=== PATIENT | male | born 1955 | race Caucasian/White ===

== ENCOUNTER 2022-05-23 08:58 | Inpatient (IN) ==
[2022-05-15 16:51] LABS: Appearance,Urine CLEAR (Clear); Bilirubin,Urine NEGATIVE (Negative); Color,Urine LT. YELLOW; Culture Indicated,Urine No; Glucose,Urine (UA) NEGATIVE (Negative); Ketones,Urine NEGATIVE (Negative); Leukocyte Esterase,Urine NEGATIVE /uL (Negative); Nitrate,Urine NEGATIVE (Negative); Protein,Urine NEGATIVE (Negative); Urine Blood NEGATIVE ery/mcL (Negative); Urobilinogen,Urine Normal
[2022-05-15 16:53] LABS: Basophils # (Auto) 0.06 K/mcL (0.00-0.30); Basophils % (Auto) 0.8 % (0.0-2.0); Eosinophils # (Auto) 0.13 K/mcL (0.00-0.70); Eosinophils % (Auto) 1.8 % (0.0-7.0); Hematocrit 46.8 % (40.1-51.0); Hemoglobin 15.6 g/dL (13.7-17.5); Lymphocytes # (Auto) 1.71 K/mcL (1.50-4.80); Lymphocytes % (Auto) 24.2 % (15.5-49.0); Mean Cell Volume 93.8 fL (80.0-100.0); Mean Corpuscular HGB Conc 33.3 g/dL (31.0-36.0); Mean Platelet Volume 10.1 fL (8.8-12.5); Monocytes # (Auto) 0.85 K/mcL (0.10-0.90); Neutrophils % (Auto) 60.8 % (38.0-78.0); Platelet Count 229 K/mcL (140-440); RBC 4.99 M/mcL (4.63-6.08); Red Cell Distribution Width 12.8 % (11.5-14.5); WBC 7.1 K/mcL (4.5-11.0)
[2022-05-15 17:10] LABS: INR 0.9 (0.9-1.1); Prothrombin Time 12.9 sec (11.9-14.5)
[2022-05-15 17:20] LABS: Estimated Average Glucose(eAG) 120 mg/dL; Hemoglobin A1C 5.8 % Hgb (4.0-6.0)
[2022-05-15 17:29] LABS: ALT/SGPT 41 U/L (<40); AST/SGOT 32 U/L (<40); Albumin 4.4 gm/dL (3.2-5.2); Albumin/Globulin Ratio 1.4 (1.0-2.3); Alkaline Phosphatase 90 U/L (39-117); Bilirubin,Total 0.3 mg/dL (0.1-1.0); Blood Urea Nitrogen 23 mg/dL (8-23); Calcium 9.9 mg/dL (8.6-10.4); Carbon Dioxide 25 mmol/L (22-30); Chloride 102 mmol/L (96-108); Globulin 3.1 gm/dL (2.2-3.7); Glomerular Filtration Rate 56; Glucose 140 mg/dL (70-105)
--- NOTE | 2022-05-18 11:30 | EKG ---
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
[~2022-05-23 08:58] MED LIST: 0.9 % SODIUM CHLORIDE 9 ML, KETOROLAC 30 MG, ROPIVACAINE HCL/PF 49.5 ML, EPINEPHrine 0.... IJ SCH; CELECOXIB 200 MG CAPSULE PO SCH; PREGABALIN 75 MG CAPSULE PO SCH; ceFAZolin 2 GM in DEXTROSE 5% IN WATER 50 ML IV SCH; oxyCODONE 10 MG TAB.ER.12H PO SCH
[2022-05-23] MEDS ORDERED: DEXAMETHASONE 10 MG/ML VIAL ONE (11:37)
[2022-05-23] MEDS ORDERED: TRANEXAMIC ACID 1,000 MG/10 ML VIAL ONE (11:37)
[2022-05-23] MEDS ORDERED: ONDANSETRON 4 MG/2 ML VIAL ONE (11:37)
[2022-05-23] MEDS ORDERED: PROPOFOL 200 MG/20 ML VIAL IV ONE (11:37)
[2022-05-23] MEDS ORDERED: LIDOCAINE HCL/PF 100 MG/5 ML SYRINGE IV ONE (11:37)
[2022-05-23] MEDS ORDERED: ROPIVACAINE HCL/PF 20 ML VIAL IJ ONE (11:37)
[2022-05-23] MEDS ORDERED: fentaNYL 100 MCG/2 ML VIAL IV ONE (11:37)
[2022-05-23] MEDS ORDERED: ROCURONIUM 10 MG/ML ML IV ONE (11:37)
[2022-05-23] MEDS ORDERED: HYDROmorphone 1 MG/ML SYRINGE ONE (11:37)
[2022-05-23] MEDS ORDERED: ONDANSETRON 4 MG/2 ML VIAL IV PRN ×2 (12:12→12:44)
[2022-05-23] MEDS ORDERED: NALOXONE HCL 0.4 MG/ML VIAL IV PRN (12:12)
[2022-05-23] MEDS ORDERED: ACETAMINOPHEN 1,000 MG/100 ML BAG IV ONE (12:12)
[2022-05-23] MEDS ORDERED: METHOCARBAMOL 1,000 MG/10 ML VIAL IV PRN (12:12)
[2022-05-23] MEDS ORDERED: IPRATROPIUM/ALBUTEROL 3 ML AMPUL.NEB NEB PRN (12:12)
[2022-05-23] MEDS ORDERED: HYDROmorphone 0.5 MG/0.5 ML SYRINGE IV PRN (12:12)
[2022-05-23] MEDS ORDERED: LACTATED RINGERS 1,000 ML IV SCH (12:15)
--- NOTE | 2022-05-23 12:42 | Brief Operative Note ---
Brief Operative Note Date of procedure: 05/23/22 Pre-op diagnosis: Left knee instability s/p prior TKA Post-op diagnosis: same Procedure: Left total knee arthroplasty revision, 1 component Grafts/Implants: Yes (12 CS insert placed) Anesthesia: GLMA Findings: no evidence of infection or implant loosening. Complications: none Surgeon: Bruce Avila Rn Informatics: Gurjit Colon Estimated blood loss (cc): 20 Specimens Removed/Pathology: other (removed 10mm CR insert w wire) Condition: stable Disposition: PACU
[2022-05-23] MEDS ORDERED: MAGNESIUM HYDROXIDE 30 ML ORAL.SUSP PO PRN (12:44)
[2022-05-23] MEDS ORDERED: TRANEXAMIC ACID 1,000 MG/10 ML VIAL IV ONE (12:44)
[2022-05-23] MEDS ORDERED: POLYETHYLENE GLYCOL 3350 17 GM PACKET PO PRN (12:44)
[2022-05-23] MEDS ORDERED: FLEETS ADULT ENEMA PR PRN (12:44)
[2022-05-23] MEDS ORDERED: BISACODYL 10 MG SUPP.RECT PR PRN (12:44)
[2022-05-23] MEDS ORDERED: morphine 4 MG/ML VIAL IV PRN (12:49)
[2022-05-23] MEDS ORDERED: NITROGLYCERIN 0.4 MG TAB.SUBL SL PRN (12:54)
[2022-05-23] MEDS ORDERED: COLCHICINE 0.6 MG CAPSULE PO SCH (13:00)
[2022-05-23] MEDS: fentaNYL 100 MCG/2 ML VIAL IV PRN ×4 (13:24→13:36)
--- NOTE | 2022-05-23 14:31 | XRay Report ---
INDICATION: Post-op total knee TECHNIQUE: AP, crosstable lateral, patellar views COMPARISON: Previous examination dated 08/04/2019 FINDINGS: Status post revision of left total knee arthroplasty. Normal anatomic alignment. There is postsurgical and intra-articular gas. There are skin wilman anteriorly IMPRESSION: Revision of left total knee arthroplasty Interpreted and Authenticated by: Raymon Collins 05/23/22
[2022-05-23] MEDS: 0.9 % SODIUM CHLORIDE 10 ML SYRINGE IV SCH ×2 (15:14→19:45)
[2022-05-23] MEDS: KETOROLAC 30 MG/ML VIAL IV SCH (17:12)
[2022-05-23] MEDS: 0.9 % SODIUM CHLORIDE 1,000 ML IV SCH (17:12)
[2022-05-23] MEDS ORDERED: ceFAZolin 1 GM VIAL ONE (19:30)
[2022-05-23] MEDS: ceFAZolin 1 GM VIAL IV SCH (19:35)
[2022-05-23] MEDS: ASPIRIN 81 MG TAB.CHEW PO SCH (19:42)
[2022-05-23] MEDS: HYDROcodone/APAP 10/325MG TABLET PO PRN (19:42)
[2022-05-23] MEDS: DOCUSATE SODIUM 100 MG CAPSULE PO SCH (19:45)
[2022-05-23] MEDS ORDERED: ATORVASTATIN 40 MG TABLET PO SCH (21:00)
[2022-05-23] MEDS ORDERED: SENNOSIDES 1 TABLET PO SCH (21:00)
[2022-05-24] MEDS: KETOROLAC 30 MG/ML VIAL IV SCH ×2 (00:47→06:05)
[2022-05-24] MEDS: 0.9 % SODIUM CHLORIDE 1,000 ML IV SCH (03:32)
[2022-05-24] MEDS: ceFAZolin 1 GM VIAL IV SCH (03:43)
[2022-05-24] MEDS: 0.9 % SODIUM CHLORIDE 10 ML SYRINGE IV SCH (06:05)
--- NOTE | 2022-05-24 07:07 | Discharge Summary ---
Discharge Provider Provider IMPORTANT FOLLOW-UP INFORMATION FOR PCP: Patient information: Note initiated : 05/24/22 at 7:06 am Service Date, if different from initiated Date: [] Patient: Trenton Anand 67 y/o M admitted on 05/23/22 for Left Total Knee Arthroplasty Revision. Chief Complaint: [] Date of admission: 05/23/22 14:04 Discharge date: 05/24/22 Primary care physician: Oli Durham PA-C COURSE Hospital Course Hospital course: Pt was admitted for a L TKA revision of the poly ethenyl exchange. Pt discharged to home post-op day 1. f/u 2 weeks. ASA for DVT prophylaxis. Discharge diagnosis: L knee pain Time Spent with Patient Time attestation: Total time spent providing and/or coordinating discharge services: Time spent: Less than 30 minutes Physical Examination Exam Clean and dry: Yes Weight bearing status: as tolerated Discharge Instructions - TKA Patient Instructions Total Knee Protocol: For Total Knee: Start ROM AIMEE with stationary bike or rocking chair. Work on gaining full extension of knee. Posterior dislocation precautions provided. Hip abductor strengthening and gait training instructions provided. Apply Cryocuff as instructed. Dressing Care: May shower in 2 days Discharge Plan Patient/Caregiver Discharge Instructions Activity: increase activity as tolerated Diet: Regular Diet Prescriptions: New aspirin 81 mg tablet,delayed release (DR/EC) 81 mg PO BID Qty: 30 0RF meloxicam 7.5 mg tablet 7.5 mg PO QDAY Qty: 30 0RF tramadol 50 mg tablet 50 mg PO Q6H PRN (Reason: pain) Qty: 60 0RF Continued colchicine 0.6 mg capsule See Rx Instructions .ROUTE .COMPLEX Qty: 10 2RF Dose Instruction: TAKE TWO CAPSULES BY MOUTH NOW AND THEN TAKE ONE CAPSULE BY MOUTH ONE HOUR LATER. Label Comments: currently not using; had been taking for a gout flare up Rx Instructions: TAKE TWO CAPSULES BY MOUTH NOW AND THEN TAKE ONE CAPSULE BY MOUTH ONE HOUR LATER. allopurinol 300 mg tablet See Rx Instructions .ROUTE .COMPLEX Qty: 45 3RF Dose Instruction: TAKE 1/2 TABLET ONE TIME DAILY Rx Instructions: TAKE 1/2 TABLET ONE TIME DAILY lisinopril 20 mg tablet 30 mg PO DAILY Qty: 135 1RF tadalafil [Cialis] 5 mg tablet 5 mg PO QDAY Qty: 90 6RF Label Comments: PAH nitroglycerin 0.4 mg tablet, sublingual 0.4 mg SUBLINGUAL Q5MIN PRN (Reason: chest pain) Label Comments: hasnt used for years Rx Instructions: do not exceed 3 tablets in 15 minutes; call md if still symptomatic after 3 rd dose rosuvastatin 20 mg tablet 20 mg PO HS ezetimibe 10 mg tablet 10 mg PO DAILY B-complex with vitamin C [Super B Complex-Vitamin C] Tablet 1 tab PO DAILY hydrochlorothiazide 25 mg tablet 25 mg PO DAILY Discontinued acetaminophen 500 mg Tablet 500 mg PO DAILYP PRN (Reason: Pain) ibuprofen 200 mg Tablet 200 mg PO DAILYP PRN (Reason: Pain) Label Comments: HOLDING FOR SURGERY aspirin 81 MG tablet,delayed release (DR/EC) 81 mg PO DAILY Label Comments: HOLDING FOR SURGERY Other Ambulatory Orders: Physical Therapy at Discharge - TKA (Routine) Location: None Selected Ordered By: Gurjit Quiñones (ONCE) Location: None Selected Ordered By: Gurjit Colon Follow Up Plan Follow up with: Bruce Avila MD [Physician] - 06/03/22 8:40 am Gurjit Colon PALuis AngelC [Physician Strategic Debriefing Officer] - Patient Disposition: Home, Self-Care Rehab Potential: Good Overall status at discharge: patient is progressing back to baseline Discharge Orders: Discharge Order (Routine); Ordered 05/24/22 Ordered By: Gurjit Colon Pending Pending Pending: Resuscitation Status Resuscitate (Full Code) Diet Regular Diet Start FriMay 23 1252 Hydrocodone Bitart/Acetaminophen (Hydrocodone/Apap 10/325mg Tablet) 1 - 2 tab PO Q4HP PRN; Protocol PRN Reason: Per Pain Protocol Last Admin: 05/23/22 19:42 Dose: 1 tab Documented By: LYNN Aspirin (Aspirin 81 Mg Tab.Chew) 81 mg PO BID [facility] Last Admin: 05/23/22 19:42 Dose: 81 mg Documented By: LYNN Atorvastatin Calcium (Atorvastatin 40 Mg Tablet) 40 mg PO HS [facility] Last Admin: 05/23/22 19:45 Dose: 40 mg Documented By: LYNN Docusate Sodium (Docusate Sodium 100 Mg Capsule) 100 mg PO BID [facility] Last Admin: 05/23/22 19:45 Dose: 100 mg Documented By: LYNN Ketorolac Tromethamine (Ketorolac 30 Mg/Ml Vial) 30 mg IV Q6 [facility] Stop: 05/25/22 12:01 Last Admin: 05/24/22 06:05 Dose: 30 mg Documented By: Admin: 05/24/22 00:47 Dose: 30 mg Documented By: Admin: 05/23/22 17:12 Dose: 30 mg Documented By: GARY Senna (Sennosides 1 Tablet) 2 tab PO HS [facility] Last Admin: 05/23/22 19:41 Dose: 2 tab Documented By: LYNN Sodium Chloride (0.9 % Sodium Chloride 10 Ml Syringe) 10 ml IV Q8 [facility] Last Admin: 05/24/22 06:05 Dose: 10 ml Documented By: Admin: 05/23/22 19:45 Dose: 10 ml Documented By: Admin: 05/23/22 15:14 Dose: Not Given Documented By: GARY Shift Summary 05/23/22 14:43 Shift Summary by Mary Orlando Pt. arrived on the floor at approx. 1404 from PACU after having a left total knee arthroplasty by Dr. Avila. Pt. had general anesthesia with an abductor block. Bladder scan was done at 1310 for 261mls. Pt. was given 100mcg Fentanyl, 1000mg Tylenol and 750mg Robaxin. VSS on RA. Pt. has foot pumps in place and is receiving NS @ 100mls/hr. Dressing to left knee is cdi. Pt. is alert and oriented, pleasant and cooperative with cares. Initialized on 05/23/22 14:43 - END OF NOTE
[2022-05-24] MEDS: DOCUSATE SODIUM 100 MG CAPSULE PO SCH (08:15)
[2022-05-24] MEDS: ASPIRIN 81 MG TAB.CHEW PO SCH (08:15)
--- OUTSIDE RECORDS SUMMARY | 2022-05-24 08:17 | External Medical Summary ---
:1955 Author Care Team Providers Name Role Phone JUNAIDTeofilo MILES PA-C Primary Care Provider [phone] Allergies Code Code System Name Reaction Severity Status Onset NKDA Medications Name Status Start Date Stop Date allopurinol (bulk) Active Not available Asprin Ec Low Dose 81 mg tablet,delayed release Active Not available Take 1 tablet every day by oral route. hydrochlorothiazide 25 mg tablet Active Not available Take 1 tablet every day by oral route. lisinopril Active Not available rosuvastatin 20 mg sprinkle capsule Active Not available Take 1 capsule every day by oral route. Super B Complex Active Not available tadalafil 5 mg tablet Active Not availa ble TAKE ONE TABLET BY MOUTH EVERY DAY Problems None recorded. Procedures Date Name Performed by 07/17/2019 Total Knee Replacement Information not a vailable 01/22/2022 XR, Knee In-Office Order Internal Use Only DO Not Attach Compendium DO Not Attach Compendium Do Not Delete/merge [id number] 01/22/2022 XR, Knee In-Office Order Internal Use Only DO Not Attach Compendium DO Not Attach Compendium Do Not Delete/merge [id number] Results Lab Results None recorded. Past Encounters Encounter Date Diagnosis Provider 01/22/2022 Pain of Right Knee Joint; Pain of Left M mitzi Dickerson MD: [id number], Knee Joint; Osteoarthritis of Right [facility] [place] [id number], Ph. Knee Joint; Mechanical Complication of Internal Joint Prosthesis Social History Tobacco Smoking Status Never Smoker Vaccine List None recorded. Plan of Care Reminders Provider Appointments None recorded. Lab None recorded. Referral None recorded. Procedures None recorded. Surgeries None recorded. Imaging None recorded. Vitals Height Weight BMI 5 ft 7 in 205 lbs 32.1 kg/m2
[2022-05-24] MEDS ORDERED: VITAMIN B COMPLEX 1 CAPSULE PO SCH (09:00)
[2022-05-24] MEDS ORDERED: EZETIMIBE 10 MG TABLET PO SCH (09:00)
[2022-05-24] MEDS ORDERED: ALLOPURINOL 300 MG TABLET PO SCH (09:00)
[2022-05-24] MEDS ORDERED: HYDROCHLOROTHIAZIDE 25 MG TABLET PO SCH (09:00)
[2022-05-24] MEDS ORDERED: LISINOPRIL 20 MG TABLET PO SCH (09:00)
[2022-05-24] MEDS: HYDROcodone/APAP 10/325MG TABLET PO PRN (09:34)
--- NOTE | 2022-05-27 09:15 | Operative Note ---
DATE OF OPERATION: 05/23/2022 DATE OF PROCEDURE 05/23/2022 PREOPERATIVE DIAGNOSIS: Left knee instability, status post previous total knee arthroplasty. POSTOPERATIVE DIAGNOSIS: Left knee instability, status post previous total knee arthroplasty. PROCEDURE PERFORMED: Revision of left total knee arthroplasty, one component, removing his previous polyethylene insert and switching it to a thicker more constrained insert. SURGEON: Bruce Avila MD HOME THERAPY TEACHER: Ignacio Colon PA-C. This providers expertise and technical skill were required throughout the case. The PA assisted with preoperative coordination, intraoperative retraction, wound closure, and dressing and splint application, as well as postoperative documentation and care coordination. ANESTHESIA: Spinal plus general. DRAINS: None. SPECIMENS: Polyethylene insert and wire, which were discarded. ESTIMATED BLOOD LOSS: Less than 50 mL. POSTOPERATIVE CONDITION: Stable. INDICATIONS FOR SURGERY: This is a 67-year-old very active male who underwent a total knee arthroplasty about 2 years ago. He had never done particularly well, but has worsened over time with pain. He had a complete workup for infection, which was negative. Radiographically, he showed no evidence of implant loosening or malposition. Clinically, though he did have some increased anterior drawer laxity, suggesting some instability. FINDINGS AT SURGERY: There was no evidence of infection. There was no evidence of implant loosening away from the bone. There was improved stability after completion of the procedure. PROCEDURE IN DETAIL: The patient had been seen preoperatively. Informed consent had been obtained after discussion of risks and benefits of surgery. Risks including, but not limited to, bleeding; infection; injury to nerves, blood vessels, other surrounding structures, anesthetic risks; incomplete or no resolution of his symptoms; possibility of needing further surgeries. He understood and wished to proceed. Correct operative site was marked in the preoperative holding, and patient was given spinal. He was then taken to the operating room and LMA general was performed. The left lower extremity was carefully prepped and draped in normal sterile fashion. A timeout was performed verifying patient name, operative site, and plan. His prior skin incision was marked out with a marker and then Ioban was used to cover all skin surfaces. We then used his midline incision with a scalpel through skin and subcutaneous tissue. Hemostasis was obtained with Bovie cautery. We dissected full-thickness flaps medially and then identified his 3 FiberWire sutures at the superior medial aspect. These were cut out with a scalpel and removed. I then used the difference scalpel and after I irrigated IrriSept made a medial parapatellar arthrotomy. There was minimal joint fluid that was not purulent-appearing, grossly. We did go ahead and take two deep cultures of this. The anterior medial aspect of the proximal tibia was exposed subperiosteally using Bovie. We then excised scar tissue from behind the patellar tendon to better expose the proximal tibial component. I then used a curved osteotome to lever out the previous polyethylene insert. I then identified the wire as well and removed it. There was some scar tissue and at least radiographically what appeared to be some residual bone along the posterior aspect of the femur and I used a gator and a Bovie to excise this. I then carefully inspected the implant. The bone surface fishmouth guide was tapped on the femur and on the tibia and there was no movement, so we felt comfortable both on our direct visual exam and radiographically that there was not loosening of implants. I then went to trial a 12 CR insert, we had removed a 10 mm insert. This was quite tight. I was able to snap it into place. We then checked range of motion. The patella still tracked excellent. We felt that varus valgus stability was excellent as well. I did not feel I could fit a 13 insert in. However, I did feel maybe he would benefit from maximum stability, so I chose to open a 12 mm CS insert. This was opened. We irrigated IrriSept I did inject pain cocktail in the posterior capsule medially as well as the pericapsular tissues medially. IrriSept was irrigated onto the tray and then I impacted the insert, which was very snug and did so with some challenge. Once the insert was in, we again checked our range of motion and stability, which was excellent. Knee was placed in full extension. We irrigated with IrriSept again, after a minute pulse lavaged copiously with saline. A #2 FiberWire was used for a single stitch at the superior medial apex of the patella and quad tendon junction. I then used a #2 Stratafix sutures, one running from the mid patella, distal and part way back up and cut and then the proximal one running mid patella proximally and part way back down. IrriSept was irrigated again, after a minute pulse lavage was used and then a local anesthetic was injected in the subcutaneous and then subcutaneous closure was done with 2-0 Monocryl and wilman for skin. Xeroform and a sterile dressing were applied. Tourniquet was released. The patient was awakened, extubated, and transferred to recovery in stable condition. [id number] Job ID: [id number] Doc ID: [id number] Bruce Avila MD
== END 2022-05-24 10:50 | disposition home or self-care (01) | DRG 489 ==
LOC: SUR 08:58 → MEDSUR 14:04
PROVIDERS: ADMIT Internal Medicine; ATTEND Orthopaedic Surgery